=== PATIENT | female | born 1990 | race Caucasian/White ===

== ENCOUNTER 2025-07-13 18:18 | Emergency (ER) | payer BC | END 2025-07-13 19:43 | disposition home or self-care (01) | LOC: BURERS 18:18 | DX: S60.221A Contusion of right hand, initial encounter (principal); I10 Essential (primary) hypertension; Z79.899 Other long term (current) drug therapy; V89.2XXA Person injured in unspecified motor-vehicle accident, traffic, initial encounter | CPT/HCPCS: 71045; 99284 ==